=== PATIENT | female | born 2000 | race Two or more races ===

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

== ENCOUNTER 2020-07-02 14:07 | Emergency (ER) | payer MEDICAID ==
[~2020-07-02] VITALS: Ht 157.5 cm; Wt 108.9 kg
[2020-07-02 16:16] VITALS: BP 130/94
== END 2020-07-02 18:34 | disposition home or self-care (01) ==
LOC: ER 14:07
DX: N60.02 Solitary cyst of left breast (principal)
CPT/HCPCS: 76642